=== PATIENT | female | born 1965 | race Caucasian/White ===

== ENCOUNTER 2017-09-14 08:50 | Emergency (ER) | payer OTHER ==
[~2017-09-14] VITALS: Ht 180.3 cm; Wt 142.9 kg
[~2017-09-14 08:50] MED LIST: CLARITIN10 MG PO; LASIX 20 MG TAB20 MG PO; LEVOTHYROXIN0.075 MG PO; LOPRESSOR50 PO; ULTRAM 50MG TAB50 MG PO
[2017-09-14] MEDS ORDERED: AMOXICILLIN875 MG PO (09:07)
[2017-09-14 09:25] VITALS: BP 157/93
== END 2017-09-14 09:26 | disposition home or self-care (01) ==
LOC: ER 08:50
DX: H66.91 Otitis media, unspecified, right ear (principal); E03.9 Hypothyroidism, unspecified; I10 Essential (primary) hypertension; J45.909 Unspecified asthma, uncomplicated; Z88.5 Allergy status to narcotic agent